=== PATIENT | male | born 1990 | race Caucasian/White ===

== ENCOUNTER 2022-04-11 21:04 | Emergency (ER) | payer SELFPAY ==
[2022-04-11] MEDS: Ketorolac 60 MG/2 ML SDV IM ONE (21:13)
[2022-04-11] MEDS ORDERED: traMADol 50 MG Tab ONE (21:30)
[2022-04-11] MEDS ORDERED: Amoxicillin/Clavulanate K 875-125 MG Tab ONE (21:30)
[2022-04-11 21:31] VITALS: BP 144/84; PULSE 73
== END 2022-04-11 21:46 | disposition home or self-care (01) ==
LOC: LB.ED 21:04
DX: K08.89 Other specified disorders of teeth and supporting structures (principal)
CPT/HCPCS: 96372; 99282; A9270-GY; J1885